=== PATIENT | female | born 1955 | race Caucasian/White ===

== ENCOUNTER 2021-03-03 11:00 | Outpatient (RCR) | payer MEDICARE, OTHER, SELFPAY | END 2021-03-22 09:18 | disposition home or self-care (01) | LOC: PT.CARL 11:00 | PROVIDERS: PCP Family Medicine; Visit Provider Orthopaedic Surgery | DX: M17.0 Bilateral primary osteoarthritis of knee (principal) | CPT/HCPCS: 97014; 97110; 97140; 97163; G0283 ==

== ENCOUNTER 2024-12-09 11:00 | Outpatient (RCR) | payer MEDICARE, SELFPAY | END 2024-12-09 23:59 | disposition home or self-care (01) | LOC: PT 11:00 | PROVIDERS: PCP Family Medicine; Visit Provider Orthopaedic Surgery | DX: Z96.652 Presence of left artificial knee joint (principal) | CPT/HCPCS: 97014; 97110; 97140; 97163; 97530; G0283 ==

== ENCOUNTER 2025-01-09 11:00 | Outpatient (RCR) | payer MEDICARE, SELFPAY | END 2025-01-09 23:59 | disposition home or self-care (01) | LOC: PT.CARL 11:00 | PROVIDERS: PCP Family Medicine; Visit Provider Orthopaedic Surgery | DX: Z47.89 Encounter for other orthopedic aftercare (principal); Z96.652 Presence of left artificial knee joint | CPT/HCPCS: 97110; 97530 ==

== ENCOUNTER 2025-07-29 10:28 | Outpatient (RCR) | payer MEDICARE, SELFPAY | END 2025-07-29 23:59 | disposition home or self-care (01) | LOC: PT 10:28 | PROVIDERS: PCP Family Medicine; Visit Provider Nurse Practitioner Family | DX: I89.0 Lymphedema, not elsewhere classified (principal) | CPT/HCPCS: 97162 ==